=== PATIENT | female | born 1960 | race Caucasian/White ===

== ENCOUNTER 2020-02-28 08:33 | Emergency (ER) | payer OTHER ==
[~2020-02-28] VITALS: Ht 167.6 cm; Wt 58.1 kg
[2020-02-28 08:46] VITALS: Ht 167.6 cm; Wt 58.1 kg
[2020-02-28 12:00] VITALS: BP 116/66
== END 2020-02-28 12:00 | disposition home or self-care (01) ==
LOC: ED 08:33
DX: S52.121A Displaced fracture of head of right radius, initial encounter for closed fracture (principal); I10 Essential (primary) hypertension; G43.909 Migraine, unspecified, not intractable, without status migrainosus; W01.0XXA Fall on same level from slipping, tripping and stumbling without subsequent striking against object, initial encounter; Y93.89 Activity, other specified; Y92.89 Other specified places as the place of occurrence of the external cause; Y99.8 Other external cause status
CPT/HCPCS: J3010